=== PATIENT | male | born 1970 | race Caucasian/White ===

== ENCOUNTER 2020-04-09 15:03 | Outpatient (REF) | payer BC, SELFPAY ==
[2020-04-15 11:31] LABS: SARS-CoV-2 RNA Undetected (Undetected); SARS-CoV-2 Specimen Source Nasopharynx
== END 2020-04-09 15:23 ==
LOC: NCHCN 15:03
PROVIDERS: PCP Internal Medicine; Visit Provider Nurse Practitioner Family
DX: R05 Cough (principal)
CPT/HCPCS: U0003

== ENCOUNTER 2020-04-24 16:05 | Outpatient (REF) | payer BC, SELFPAY ==
[2020-04-24 21:05] LABS: Abs Immature Grans 0.05 10^3/uL (0.0-0.06); Absolute Basophil Count 0.05 10^3/uL (0.0-0.2); Absolute Lymphocyte Count 1.49 10^3/uL (1.2-3.4); Absolute Monocyte Count 0.46 10^3/uL (0.1-0.8); Basophils % 0.4; Eosinophils % 0.6; HCT 40.1 % (40.0-50.0); HGB 13.9 g/dL (13.5-17.5); Immature Grans % 0.4; Lymphocytes % 12.1; MCH 31.7 pg (27.0-33.0); MCHC 34.7 % (32.0-36.0); MCV 91.6 fL (80-95); MPV 10.5 fL (8.0-11.0); Monocytes % 3.7; Neutrophils % 82.8; Nucleated RBC 0 %; Platelet Count 472 10^3/uL (130-400); RBC 4.38 10^6/uL (4.36-5.78); RDW-SD 40.2 fL; WBC 12.32 10^3/uL (4.4-10.8)
[2020-04-24 21:14] LABS: Absolute Eosinophil Count 0.07 10^3/uL (0.0-0.7)
[2020-04-26 11:45] LABS: Lyme Ab w Rflx to Lyme Confirm Positive (Negative)
[2020-04-30 14:46] LABS: IgG Immunoblot Negative (Negative); IgM Band(s) p41; IgM Immunoblot Positive (Negative)
== END 2020-04-24 16:25 ==
LOC: NCHCN 16:05
PROVIDERS: PCP Internal Medicine; Visit Provider Internal Medicine
DX: Z87.898 Personal history of other specified conditions (principal); M25.50 Pain in unspecified joint; R21 Rash and other nonspecific skin eruption
CPT/HCPCS: 86617; 85025; 86618

== ENCOUNTER 2023-04-17 08:10 | Day surgery (SDC) | payer OTHER, SELFPAY ==
--- NOTE | 2023-04-16 20:03 | W.COLOREPORT ---
Date of service: 04/17/23 Time of Service: 10:00 Colonoscopy Report Date of procedure: 04/17/23 Pre-op diagnosis general: CRC screening Post-op diagnosis procedure note: same Surgeon: Coco Bishop Anesthesia Type: General:No Airway Estimated blood loss (mL): 1 Pathology: other Complications: None Disposition: same day Prep: Miralax/Dulcolax Retraction Time: 9 Procedure Description: After informed consent was obtained the patient was taken to the procedure room and placed in a left decubitous position. Monitors were applied and a time out was done. The patients name, date of , procedure, allergies to medications and metal in their body was reviewed. The patient was then sedated. Once sedated and comfortable a rectal exam was done. External exam was normal. Internal exam revealed a normal sphincter tone and no palpable masses. The prostate normal. The scope was then introduced and retrofelexed. No internal hemorrhoids were identified. The scope was then advanced to the cecum without difficulty. The TI and appendiceal orifice were identified. The prep was BBPS 3 in all segments for a total of 9. The scope was then slowly retracted over 9 minutes back into the rectum. There are no diverticula or AVMs visualized today. He does have a small 5 mm polyp in the rectum. This is removed with cold biting forcep. All specimen is retrieved and no bleeding is noted.. The scope was removed and the patient was woken up and taken back to Same day surgery in stable condition. The patient tolerated the procedure well and there were no immediate complications. Follow up: The patient should follow up in 7-10 years, path pending, unless they develop changes in bowel habits or other new gastrointestinal complaints.
--- NOTE | 2023-04-16 20:04 | PDOC.DSDIS_ITS ---
Date of service: 04/17/23 Time of Service: 10:43 Discharge Plan Disposition Patient Disposition: Home Condition: Good Discharge Details Reason For Visit: colon scope Attending Provider: Coco Bishop Primary Care Provider: Brett Renner Home Meds and New Rx's Prescriptions: Discontinued bisacodyl [Dulcolax (bisacodyl)] 5 mg tablet,delayed release (DR/EC) 5 mg PO ONCE Qty: 4 0RF Rx Instructions: Take per colonoscopy instructions provided by ordering providers office polyethylene glycol 3350 17 gram/dose powder 17 g PO ONCE Qty: 238 0RF Rx Instructions: Take per colonoscopy instructions provided by ordering providers office No Action No Known Home Meds Discharge Instructions Additional Instructions: DSU Colonoscopy Post- Op Instructions Instructions for Everyone who is given Anesthesia: For your safety, please do the following for the next twenty-four (24) hours: *Do Not operate a motor vehicle (car, truck, motorcycle, etc.) *Do Not drink alcoholic beverages or use any recreational drugs for the first 24 hours or while taking pain medications. The medications in your body may have a reaction that can be dangerous. *Do Not make any important decisions or sign any important papers. Findings: x1 small polyps, otherwise normal. Follow up: My office will send a letter in 2 to 3 weeks time with the results from the pathology and when we want you to repeat the colonoscopy. 1. No lifting over 20 pounds or strenuous activity for the first 24 hours after your procedure. After 24 hours there are no restrictions on your activity but you may feel fatigued for a few days. 2. After you arrive home you may have a light meal and return to your normal diet as you can tolerate it without feeling sick to your stomach. 3. You may have a bloated, gaseous feeling in your belly (abdomen) after a colonoscopy. Passing gas and belching will help. Walking or lying down on your left side with your knees flexed may relieve the discomfort. Call the office at [phone] (Office) or [phone] (Hospital) right away if you notice any of the following: a.Vomiting of blood or ?coffee ground stools?. b.Rectal bleeding 1Tbsp, blood clots or continuous bleeding. c.Severe belly (abdominal) pain. d.A hard distended belly (abdomen) and an inability to pass gas. 4. Please don?t expect to have a normal BM (bowel movement) for 2-3 days after your procedure. 5. If there are questions regarding the findings of your procedure, please cont act your doctor 6. If you are unable to contact your doctor with a problem, contact the hospital at [phone]. 7. Continue all your regular medications unless directed otherwise. I understand the above instructions and have no questions. Signature of Patient or Adult Escort Name of Responsible Adult Escort Signature of Nurse Date/Time Activity:: See above for Diet:: See above Discharge Orders Discharge Orders: Discharge Order (Routine); Ordered 04/17/23 Ordered By: Coco Bishop DS: Diagnosis Discharge Diagnosis (1) Special screening for malignant neoplasm: Status: Acute Asessment and Plan: ? ? The patient is seen and examined after their colonoscopy.? The patient has been able to pass gas.? They are not having abdominal pain.? They have been able to tolerate liquids and a snack.? They do not have any nausea or vomiting.? They are not having any chest pain or shortness of breath.??? They are not having any rectal bleeding. Their vital signs have been stable-see nursing notes.? ? We discussed findings during their colonoscopy, and any biopsies that were done/polyps that were removed. The patient will be sent a letter with any biopsy results, and when to repeat the colonoscopy.-see discharge instructions.? ? Patient was given explicit instructions to follow-up regarding colonoscopy-refer to discharge instructions.? We reviewed resumption of medications.? Patient verbalized understanding and discharged in stable and satisfactory condition- See nursing notes.? (2) Overweight: Status: Acute (3) Tobacco use:
[2023-04-17 08:21] VITALS: BP 108/70; PULSE 60; RESP 18; TEMP 36.5; O2SAT 97
--- NOTE | 2023-04-17 08:28 | ANES.PREOP_ITS ---
General Info Date of Service Date Performed: 04/17/23 Height: 5 ft 10 in Weight: 88.8 kg Body Mass Index (BMI): 28.0 Surgical Procedure: Operation Date: 04/17/23 09:05 Proposed Procedure Side Surgeon radha Bishop, DO Meds Allergies and Home Medications Allergies Allergy/AdvReac Type Severity Reaction Status Date / Time No Known Allergies Allergy Verified 04/17/23 08:26 Home Medication Medication Instructions Recorded Unknown [No Known Home Meds] 04/17/23 Current Visit Medications: Current Medications Generic Name Dose Route Start Last Admin Trade Name Freq PRN Reason Stop Dose Admin Hyoscyamine Sulfate 0.125 mg 04/17/23 08:01 Hyoscyamine 0.125 Mg Sl/Oral/Chew SL 05/17/23 08:00 DIRECTED PRN Ringer's Solution 1,000 mls @ 80 mls/hr 04/17/23 06:00 IV 05/16/23 23:59 INFUSION [facility] IV Miscellaneous Supplies 1 each 04/17/23 06:00 Iv Access IV 05/16/23 23:59 DIRECTED TERENCE Ondansetron HCl 4 mg 04/17/23 08:01 Ondansetron 4 Mg/2 Ml Vial IVP 05/17/23 08:00 Q4H PRN PRN Nausea / Vomiting Sodium Chloride 0 ml 04/17/23 06:00 Normal Saline Flush 10 Ml Syr IV 05/16/23 23:59 PRN PRN Sodium Chloride 0 ml 04/17/23 06:00 Normal Saline 10 Ml Vial IJ 05/16/23 23:59 DIRECTED PRN Sterile Water 0 ml 04/17/23 06:00 Water,Injection,Sterile 10 Ml Vial IJ 05/16/23 23:59 DIRECTED PRN PFSH Active Problems Active Problems: Problem Status Onset Code Screening for colon cancer Z12.11 Left inguinal hernia K40.90 Overweight E66.3 Epididymal cyst N50.3 Dysthymia F34.1 Dysphagia R13.10 Special screening for malignant neoplasm Z12.9 Medical History Medical History Chronic throat pain Tobacco use Surgical History Surgical History (Updated 04/17/23 @ 08:26 by Sylvia Alonso RN) History of arthroplasty of left shoulder Tobacco Smoking/Tobacco Use Status: Never Alcohol Alcohol Intake: current Alcohol intake frequency: a few times a week Substance Use Substance use: Never Substance use type: does not use Vital Signs and Lab Results Vital Signs Most Recent Vital Signs in EMR: Most Recent Vital Signs Temp Pulse Resp BP Pulse Ox 36.5 C 60 18 108/70 97 04/17/23 08:21 04/17/23 08:21 04/17/23 08:21 04/17/23 08:21 04/17/23 08:21 Lab Results Blood Type / Crossmatch: No Data to Display Complete Blood Count: No Data to Display Complete Metabolic Panel: No Data to Display Liver Function Panel: No Data to Display Coagulation Panel: No Data to Display Cardiac Panel: No Data to Display Arterial Blood Gas: No Data to Display Venous Blood Gas: No Data to Display Pancreas Panel: No Data to Display Thyroid Panel: No Data to Display Infectious Disease: No Data to Display Blood Cultures: No Data to Display Toxicology Panel: No Data to Display Anesthesia Assessment and Plan Anesthesia History Personal History: No History of Anesthesia Complications Family History: No Family History of Anesthesia Complications Exercise Tolerance Exercise Tolerance: Metabolic Equivalents>4 Pertinent Negatives Pertinent Negatives: No Symptoms of GERD, No Major Cardiovascular Symptoms or Complaints and No Major Pulmonary Symptoms or Complaints Cardiac & Pulmonary Exam Cardiac Exam: Normal S1/S2 Heart Sounds Pulmonary Exam: Clear Bilateral Breath Sounds Implantable Cardiac Device Does patient have a Pacemaker or an ICD?: No Airway Exam Known Difficult Airway: No Mallampati Class: 1 Mouth Opening: Normal (> 3cm) Thyromental Distance: Greater than 3 cm Neck Range of Motion: Full ROM Neck Circumference: Normal Teeth Condition: Normal Dentition ASA Classification ASA Score: ASA 2 Emergency Case?: No NPO Status NPO Status: NPO Clears >2 hours, Solids >8 hours Anesthesia Plan Resuscitation Status: Full Code Anesthesia Technique: General Anesthesia Airway Planned: Natural Airway Monitors Used: Standard Monitors
[2023-04-17 08:30] VITALS: BMI 28.0
[2023-04-17] MEDS: Lactated Ringers 1,000 ML 80 ML IV (08:33)
--- NOTE | 2023-04-17 10:04 | BOWEL_PTH ---
PATIENT: Iron Jimenez LOC: [facility] U#:[id number] AGE/SX: 52/M ROOM: RE04/17/[address]: Coco Bishop : 1970 BED: DIS: 04/17/2023 SPEC #: [id number] RECD: 04/17/23 12:37 STATUS: MARKO REQ #: [id number] YOHANA: 04/17/23 10:[address]: Coco Bishop DEPT: Surgical Specimen RECD BY: Vicki Garcia ENTERED: 04/17/23 12:38 SP TYPE: Bowel OTHR DR: Brett Renner Tissues: 1 - BIOPSY BOWEL Procedures: GROSS AND MICRO LEVEL 4 Comments: [id number]
[2023-04-17 10:10] VITALS: BP 101/70; PULSE 62; RESP 16; TEMP 36.2; O2SAT 95
--- NOTE | 2023-04-17 10:29 | W.ANESPOSTOP ---
Postoperative Evaluation Date, Time and Location Date Performed: 04/17/23 Time Performed: 10:29 Patient Location: Day Surgery Unit Vital Signs Most Recent Imported Vital Signs: Most Recent Vital Signs Temp Pulse Resp BP Pulse Ox 36.2 C L 62 16 101/70 95 04/17/23 10:10 04/17/23 10:10 04/17/23 10:10 04/17/23 10:10 04/17/23 10:10 Pain Score Most Recent Pain Score: Most Recent Pain Score Pain Level 0 04/17/23 10:10 Assessment Mental Status: Awake (Alert & Oriented to Patient Baseline) Airway and Respiratory Function: Patent airway with normal (patient baseline) respiratory exam Cardiovascular Function: Hemodynamically Stable Hydration Status: Adequately Hydrated Nausea & Vomiting: No Nausea or Vomiting Pain: Pt. Denies Any Pain Peripheral Nerve Block: Patient did not receive a nerve block
[2023-04-17 10:40] VITALS: BP 104/71; PULSE 64; RESP 18; TEMP 36.3; O2SAT 98
== END 2023-04-17 11:05 | disposition home or self-care (01) ==
LOC: SUR 08:10
PROVIDERS: PCP Internal Medicine; Visit Provider Surgery
PROC: 0DJD8ZZ Inspection of Lower Intestinal Tract, Via Natural or Artificial Opening Endoscopic (ICD-10-PCS; CPT 45378; principal; 2023-04-17 09:00)
DX: Z12.11 Encounter for screening for malignant neoplasm of colon; K62.1 Rectal polyp
CPT/HCPCS: 45380; 88305

== ENCOUNTER 2025-06-27 21:14 | Outpatient (REF) | payer OTHER, SELFPAY ==
[2025-06-27 22:05] LABS: LDL CHOLESTEROL 106 mg/dL (<100)
[2025-06-27 22:19] LABS: Hemoglobin A1C 4.9 % (<5.7)
== END 2025-06-27 21:15 | disposition home or self-care (01) ==
LOC: NCHCN 21:14
PROVIDERS: PCP Family Medicine; Visit Provider Family Medicine
DX: Z00.00 Encounter for general adult medical examination without abnormal findings (principal)
CPT/HCPCS: 83721; 83036

== ENCOUNTER → 2025-08-21 03:51 | Outpatient (CLI) | payer OTHER, SELFPAY ==
--- NOTE | 2025-08-21 | DI.RAD_ITS ---
Exam(s) XR LUMBAR SPINE COMPLETE EXAM: XR LUMBAR SPINE COMPLETE CLINICAL HISTORY: LOW BACK PAIN W/O SCIATICA M54.50 CHRONIC PAIN G89.29. TECHNIQUE: 2D digital imaging was performed. COMPARISON: No exams were available for comparison FINDINGS: Five views There are multilevel compression deformities involving T12, L1, L3, and L4 L5 vertebral bodies, most probably not acute. No listhesis. No pars defects. No scoliosis. There is mild disc space narrowing at L3-4 level. Other disc spaces exhibit normal height. There is only minimal facet arthropathy. Sacroiliac joints appear unremarkable. No focal osseous lesions evident. IMPRESSION: Multilevel compression deformities of T12, L1, L3, L4, and L5. These do not appear acute. Disc space narrowing at L3-4 noted. DATA REPOSITORY: RADIATION DOSE DELIVERED:
== END ==
PROVIDERS: PCP Family Medicine; Visit Provider Family Medicine
DX: M51.25 Other intervertebral disc displacement, thoracolumbar region (principal)
CPT/HCPCS: 72110